=== PATIENT | female | born 1960 | race Caucasian/White ===

== ENCOUNTER → 2016-10-08 | Day surgery (SDC) | payer OTHER ==
[2016-09-26 08:04] VITALS: Ht 156.8 cm; Wt 53.6 kg
[~2016-10-08] VITALS: Ht 156.8 cm; Wt 53.6 kg
[~2016-10-08] MED LIST: ATROPINE SULFATE 0.1 MG/ML 5ML SYR IV PRN; DEXAMETHASONE SOD INJ 4 MG/ML VIAL ONE; EpHEDrine SULFATE INJ 50 MG/ML AMP IV PRN; FENTANYL CITRATE INJ 50 MCG/1 ML 2 ML VIAL IV PRN; FENTANYL CITRATE INJ 50 MCG/1 ML 2 ML VIAL ONE; IBUPROFEN 600 MG TAB PO PRN; KETOROLAC TROMETHAMINE 30 MG/ML VIAL IV. PRN; KETOROLAC TROMETHAMINE 30 MG/ML VIAL ONE; LACTATED RINGER'S 1000ML 1,000 ML IV SCH; LIDOCAINE HCL 2% 2 ML VIAL (20MG/ML) ONE; MIDAZOLAM HCL 1 MG/ML 2ML VIAL ONE; ONDANSETRON INJ 2 MG/ML 2 ML VIAL IV PRN; ONDANSETRON INJ 2 MG/ML 2 ML VIAL ONE; OXYCODONE/ACETAMINOPHEN 5-325 TAB PO PRN; PROPOFOL IV EMULSION 10 MG/ML 20 ML VIAL IV ONE; PSEUCAP67 PO; SODIUM CHLORIDE 0.9% 1000ML 1,000 ML IV SCH; TAMO20TA9 PO
--- NOTE | 2016-10-08 08:06 | History & Physical Bridge - [place] ---
H&P Re-Evaluation Bridge Note: I have examined the patient, reviewed the History & Physical and in the interval since the performance of the History & Physical I have noted the following changes of clinical significance: No changes noted
--- NOTE | 2016-10-08 08:20 | Discharge Instructions ---
Discharge Instructions Admission Reason for Admission: Post Menopausal Bleeding Discharge Discharge Diagnosis / Problem: after surgery Discharge Goals Goal(s): Routine recovery after surgery Activity Recommendations Activity Limitations: as noted below . Instructions / Follow-Up Instructions / Follow-Up ACTIVITY RECOMMENDATIONS: * Avoid tampons, douching, hot tubs, pools, and intercourse until bleeding has stopped. * May shower as usual. * No strenuous activity for 24-48 hours. After 24-48 hours, you may do anything you feel like doing (driving and sports are okay). SPECIAL CARE INSTRUCTIONS: Special Diet: * Mild nausea may occur in the immediate post-operative period. * Take clear liquids such as tea, cola or bouillon until all nausea has subsided; you may then resume your normal diet. Special Care: * Light bleeding and vaginal spotting can last from a few days to 3-4 weeks. Call your doctor if bleeding becomes heavier than the heaviest part of your period. * Check your temperature twice a day for one week. If it goes above 100.4 degrees Fahrenheit (38.0 Celsius), notify your doctor. * Call your doctor's office for an appointment for 2 weeks after your surgery. FOLLOW-UP VISIT: Call your doctor's office for an appointment for 2 weeks after your surgery. Current Hospital Diet Patient's current hospital diet: Discharge Diet Recommended Diet: Regular Diet Pending Studies Studies pending at discharge: yes List of pending studies: pathology Medical Emergencies . Who to Call and When: Medical Emergencies: If at any time you feel your situation is an emergency, please call 911 immediately. . Non-Emergent Contact Non-Emergency issues call your: Primary Care Provider, Software Development Analyst Call Non-Emergent contact if: you have a fever . . "Provider Documentation" section prepared by Evie Colindres. VTE Core Measure Inpt VTE Proph given/why not?: Treatment not indicated
--- NOTE | 2016-10-08 08:37 | [facility] Post Operative Brief Note ---
Immediate Operative Summary Operative Date Oct 08, 2016. Pre-Operative Diagnosis 1. Post Menopausal Bleeding 2. Abnl u/s pelvis 3. Use of tamoxifen Post-Operative Diagnosis same Procedure(s) Performed Dilitation and Curettage, Hysteroscopy Surgeon Dr. Rajinder Colindres Racing Secretary And Handicapper Surgeon(s) 0 Estimated Blood Loss 0 Findings uterus sounds to 7cm, nl ostia bilaterally. no polyp or lesion, bland appearing cavity with minimal curettings. saline deficit 0 cc. Fluids (cc crystalloids) 500 Specimens A. Endometrial Curettings Drains none Anesthesia general Complication(s) None Disposition Recovery Room / PACU
--- NOTE | 2016-10-08 09:03 | Anesthesia Progress Nt - [facility] ---
Anesthesia Post Op Note Date & Time Oct 08, 2016 at 09:03 Vital Signs Pain Intensity: 0 Vital Signs Past 12 Hours Date Time Temp Pulse Resp B/P Pulse Ox O2 Delivery O2 Flow Rate FiO2 10/08/16 06:50 36.9 65 14 138/86 100 Room Air Notes Mental Status: alert / awake / arousable, participated in evaluation Pt Amnestic to Procedure: Yes Nausea / Vomiting: adequately controlled Pain: adequately controlled Airway Patency, RR, SpO2: stable & adequate BP & HR: stable & adequate Hydration State: stable & adequate Anesthetic Complications: no major complications apparent
--- NOTE | 2016-10-08 09:10 | OPERATIVE REPORT ---
DATE OF OPERATION: 10/08/2016 PREOPERATIVE DIAGNOSES: 1. Postmenopausal bleeding. 2. Abnormal ultrasound of the pelvis. 3. Use of tamoxifen. POSTOPERATIVE DIAGNOSES: Same. PROCEDURES: 1. Dilatation and curettage. 2. Hysteroscopy. SURGEON: Dr. Evie Colindres. BARREL RIFLER OPERATOR: None. IV FLUIDS: 500 mL. ESTIMATED BLOOD LOSS: Zero. ANESTHESIA: General. FINDINGS: Uterus sounds to 7 cm, normal tubal ostia bilaterally, uterine lining very bland appearing, no lesions, no polyps, and minimal curettings noted. Saline hysteroscopic fluid deficit is 0 mL. INDICATIONS: A 56-year-old postmenopausal female who is on tamoxifen for a history of breast cancer with postmenopausal bleeding and an ultrasound showing thickened lining with microcysts for evaluation. The patient was unable to tolerate any office sampling. She desired surgical evaluation. DESCRIPTION OF PROCEDURE: The patient was taken to operating room and identified. After adequate general anesthesia was obtained, she was placed in dorsal lithotomy position and prepped and draped in the usual sterile fashion. The bladder was drained for clear yellow urine. A weighted speculum and anterior retractor were used to visualize the cervix, which was grasped on its anterior lip with an Allis clamp. The cervix was sequentially dilated using Sandie dilators to 23. The diagnostic hysteroscope primed with saline medium was gently placed through the cervical os into the uterine cavity with the findings as noted above. A serrated curette was used to curettage the uterus to a gritty consistency and all specimens were sent. The camera was reintroduced with no evidence of perforation and evidence of adequate sampling. The patient was returned to supine position. All instruments were removed. She was awoken from anesthesia and transferred to the recovery room in stable condition. All sponge, lap and needle counts were correct x2. I attest to the content of the Intraoperative Record and any orders documented therein. Any exceptions are noted below. MTDD
[2016-10-08 09:22] VITALS: TEMP 36.6
[2016-10-08 09:42] VITALS: BP 122/85; PULSE 74; O2SAT 99
== END | disposition home or self-care (01) ==
LOC: X.SURG 06:30
PROVIDERS: ATTEND Obstetrics & Gynecology
DX: N95.0 Postmenopausal bleeding (principal); R93.8 Abnormal findings on diagnostic imaging of other specified body structures; Z79.810 Long term (current) use of selective estrogen receptor modulators (SERMs); N93.9 Abnormal uterine and vaginal bleeding, unspecified; J45.909 Unspecified asthma, uncomplicated; Z88.2 Allergy status to sulfonamides; Z98.890 Other specified postprocedural states; Z85.3 Personal history of malignant neoplasm of breast; Z87.42 Personal history of other diseases of the female genital tract; Z80.0 Family history of malignant neoplasm of digestive organs; Z68.22 Body mass index [BMI] 22.0-22.9, adult

== ENCOUNTER → 2017-08-21 | Outpatient (CLI) | payer OTHER ==
[~2017-08-21] MED LIST changes: -ATROPINE SULFATE 0.1 MG/ML 5ML SYR IV PRN; -DEXAMETHASONE SOD INJ 4 MG/ML VIAL ONE; -EpHEDrine SULFATE INJ 50 MG/ML AMP IV PRN; -FENTANYL CITRATE INJ 50 MCG/1 ML 2 ML VIAL IV PRN; -FENTANYL CITRATE INJ 50 MCG/1 ML 2 ML VIAL ONE; -IBUPROFEN 600 MG TAB PO PRN; -KETOROLAC TROMETHAMINE 30 MG/ML VIAL IV. PRN; -KETOROLAC TROMETHAMINE 30 MG/ML VIAL ONE; -LACTATED RINGER'S 1000ML 1,000 ML IV SCH; -LIDOCAINE HCL 2% 2 ML VIAL (20MG/ML) ONE; -MIDAZOLAM HCL 1 MG/ML 2ML VIAL ONE; -ONDANSETRON INJ 2 MG/ML 2 ML VIAL IV PRN; -ONDANSETRON INJ 2 MG/ML 2 ML VIAL ONE; -OXYCODONE/ACETAMINOPHEN 5-325 TAB PO PRN; -PROPOFOL IV EMULSION 10 MG/ML 20 ML VIAL IV ONE; -SODIUM CHLORIDE 0.9% 1000ML 1,000 ML IV SCH
[2017-08-21 13:20] VITALS: BP 145/83; PULSE 89; TEMP 36.7; O2SAT 100
--- NOTE | 2017-08-22 07:03 | Radiation Oncology Follow-Up ---
Radiation Oncology Follow-Up Date of Visit Aug 21, 2017. 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 She denies any changes to her breast. She's noted no masses or tenderness and no change of the axilla. She' s had no swelling of her arm. She has a area of discomfort in her right shoulder. This is an ongoing since after her radiation. It does become worse with activity. She describes a "itching sensation". This feels deep below the skin. There've been no skin changes in this area. She's noted no masses. Our last visit she had been having problems with vaginal discharge. She did see the manager data. She had a Pap smear as well as endometrial biopsy. These were all benign. This was also to follow-up on the previous PET scan that had shown vaginal and cervical physiologic activity. Allergies Coded Allergies: Terfenadine (Verified Allergy, Unknown, 10/08/16) Sulfa Drugs (Unverified Adverse Reaction, Intermediate, neck pain, 10/08/16) Uncoded Allergies: ASTHMA/CAT DANDER/MOLDS (Allergy, Unknown, 11/19/02) PIPERIDINE ANTIHISTAMINES (Ingr Allergy) (Allergy, Unknown, Y, 10/12/15) Home Medications Scheduled Tamoxifen (Nolvadex), 20 MG PO QAM Scheduled PRN Pseudoephedrine-Ibuprofen (Advil Cold & Sinus), 1 CAP PO DAILY PRN for allergies Review of Systems Gastrointestinal: Symptoms: WNL Oral: Symptoms: No Problems Respiratory: Symptoms: WNL Urinary: Symptoms: WNL Skin: Symptoms: No Problems Other Skin Symptoms: occ has an itchy area behind her right shoulder Breast: Right Upper Arm Measurement: 25.0 Right Mid Arm Measurement: 22.5 Right Wrist Measurement: 14.5 Left Upper Arm Measurement: 26.0 Left Mid Arm Measurement: 22.0 Left Wrist Measurement: 14.8 Arm Dominence: Right Patient Cosmetic Evaluation: Excellent Staff Cosmetic Evalaluation: Excellent Physical Exam Vital Signs Date Time Temp Pulse Resp B/P (MAP) Pulse Ox O2 Delivery O2 Flow Rate FiO2 08/21/17 13:20 36.7 89 16 145/83 100 Fatigue: None General Appearance: no apparent distress Eyes: normal inspection, EOMI ENT: normal ENT inspection, hearing grossly normal Neck: no adenopathy, thyroid normal Respiratory/Chest: lungs clear, no respiratory distress, no accessory muscle use Breast: Breast examination reveals well-healed incisions of the right breast. There are no masses or tenderness and no axillary adenopathy. There are no skin retractions or nipple changes. She has slight telangiectasia in the upper outer quadrant. Using the Odin score cosmesis she has a good outcome. The left breast showed no masses or tenderness and no axillary adenopathy. Cardiovascular: regular rate, rhythm, no gallop, no murmur Extremities: no pedal edema, + pertinent finding (there is mild tenderness along the border of the scapula. This is especially noted below the tip of the scapula. There are no masses. There are no changes of the overlying skin. There is no erythema or edema.) Neurologic/Psychiatric: no motor/sensory deficits, alert, normal mood/affect Skin: warm/dry Pain Management Side: Bilateral Patient Preferred Pain Scale: 0 - 10 Additional Studies She had a mammogram at [facility] July 03 2017. This was a stable examination without suspicious findings. One year follow-up was suggested. She is given a category 2. Assessment & Plan Plan: Continue annual mammography and regular follow-up with her medical oncologist. Continue follow-up with her primary care physician. Due to the ongoing discomfort of the right shoulder and MRI will be ordered. She'll be notified as to the results. A follow-up point with our office was not given. She may call if she has any questions or concerns. She plans to continue follow -up with Dr. Colindres in [place] as well as her provider at [facility]. Total Time In Follow-Up I spent 20 minutes being to the patient and performing examination. I spent 15 minutes reviewing information and completing this note. Copy To Leticia Coats,; Paxton Colindres M.D.
== END | disposition home or self-care (01) ==
LOC: C.ONC 13:14
PROVIDERS: ATTEND Physician Assistant Medical
DX: Z08 Encounter for follow-up examination after completed treatment for malignant neoplasm (principal); Z92.3 Personal history of irradiation; Z85.3 Personal history of malignant neoplasm of breast

== ENCOUNTER → 2017-10-21 | Outpatient (CLI) | payer OTHER | END | disposition home or self-care (01) | LOC: C.PAPS 10:56 | PROVIDERS: ATTEND Obstetrics & Gynecology | DX: Z12.4 Encounter for screening for malignant neoplasm of cervix (principal) ==